=== PATIENT | male | born 1970 | race African-American/Black ===

== ENCOUNTER 2018-08-02 14:35 | Emergency (ER) | payer SELFPAY ==
[~2018-08-02] VITALS: Ht 182.9 cm; Wt 78.6 kg
[~2018-08-02 14:35] MED LIST: AMOXICILLIN 8751 TAB PO; LORTAB 5/500 501 TAB PO; NO HOME MEDICATIONS; PERCOCET 325 MG1 TA2 PO
[2018-08-02 14:40] VITALS: BP 132/81; TEMP 98.7
[2018-08-02 15:31] VITALS: PULSE 83
== END 2018-08-02 15:31 | disposition home or self-care (01) ==
LOC: COL.ER 14:35
DX: S42.002A Fracture of unspecified part of left clavicle, initial encounter for closed fracture (principal); X58.XXXA Exposure to other specified factors, initial encounter; Y92.410 Unspecified street and highway as the place of occurrence of the external cause